=== PATIENT | female | born 2005 | race Caucasian/White ===

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

== ENCOUNTER 2025-01-06 11:08 | Emergency (ER) | payer OTHER, SELFPAY ==
--- NOTE | 2025-01-06 11:12 | ED.SKABFB ---
HPI - Skin/Abscess/Foreign Bdy General Chief complaint: Skin/Abscess/Foreign Body Stated complaint: Rash Left Foot Time Seen by Provider: 01/06/25 11:20 Source: patient Mode of arrival: ambulatory Limitations: no limitations History of Present Illness HPI narrative: Jacquelyn is a 19-year-old female patient presenting to the clinic today with complaints of a red, raised, itchy, burning rash to her left foot. She reports she participated in [employer] drill-walking [address] over the weekend developed a rash on her left foot. She reports that her feet were very sweaty after the hike. Related Data Home Medications ?Medication ?Instructions ?Recorded ?Confirmed ?Last Taken ?Type medroxyprogesterone 150 mg/mL 150 mg IM [id number] 09/09/24 09/09/24 Unknown History intramuscular syringe spironolactone 100 mg tablet mg 01/06/25 Unknown History Allergies Allergy/AdvReac Type Severity Reaction Status Date / Time No Known Allergies Allergy Verified 01/06/25 11:14 Review of Systems Review of Systems: Pertinent positives per HPI. Patient denies any fever, chills, headache, visual changes, dizziness, cough, shortness of breath, chest pain, palpitations, nausea, vomiting, diarrhea, constipation, abdominal pain, or any urinary issues. [facility] Past Medical History Medical History Anxiety and depression Surgical History Surgical History Hx of tonsillectomy Social History Social History Smoking status: Never smoker Alcohol intake: never Substance use type: does not use Occupation/Education: student Gender identity (if verbalized by the patient): Female Comments At the time of my signature, I reviewed and agree with the nursing past medical, surgical, social, and family history. There is no relevant family history pertinent to the patient complaint. Exam Narrative: General: Well-developed, well nourished, in no apparent distress Head: Normocephalic, atraumatic. Cardio: Regular rate and rhythm, s1 and s2 normal, no murmur appreciated. Resp: Clear to auscultation bilaterally, no rhonchi, rales, wheezing or rubs. Integumentary: [place], warm, and dry, red, raised, itchy, burning rash to the left toes Course Course Emergency Course: Portions of this record may have been created with voice recognition software. Level of Care: Express Care Visit Vital Signs Vital signs: Vital Signs Temperature 36.7 C 01/06/25 11:18 Pulse Rate 90 01/06/25 11:18 Respiratory Rate 18 01/06/25 11:18 Blood Pressure 117/69 01/06/25 11:18 Pulse Oximetry 99 01/06/25 11:18 Oxygen Delivery Room Air 01/06/25 11:18 Temperature 36.7 C 01/06/25 11:18 Pulse Rate 90 01/06/25 11:18 Respiratory Rate 18 01/06/25 11:18 Blood Pressure 117/69 01/06/25 11:18 Pulse Oximetry 99 01/06/25 11:18 Oxygen Delivery Room Air 01/06/25 11:18 Vital signs reviewed MDM - Skin/Abscess/Foreign Bdy MDM Narrative Medical decision making narrative: At the time of visit patient is resting comfortably on the exam table. Patient appears to be nontoxic. Plan: I suspect patient has tinea pedis. Prescription for to be terbinafine cream was sent to the pharmacy. Supportive measures were discussed with the patient and they voiced understanding discharge instructions and agrees to treatment plan. Return precautions reviewed Differential Diagnosis Differential diagnosis: Likely abscess of skin or subcutaneous tissue, viral exanthem, dermatophytosis, urticaria, herpes zoster, allergic reaction to drug, cellulitis, eczema, insect bites, impetigo, contact dermatitis and other (Tinea pedis) Discharge Plan Discharge Clinical Impression: Tinea pedis Qualifiers: Laterality: left Qualified Code(s): B35.3 - Tinea pedis Patient Disposition: Home, Self-Care Condition: Stable Instructions: Antibiotic Form, Skin Yeast Infection (ED) Additional Instructions: Apply terbinafine cream as prescribed Follow-up with your primary care doctor as needed Patient Language: Portuguese Prescriptions: New terbinafine HCl 1 % cream 1 applic topical BID 14 Days Qty: 30 0RF No Action medroxyprogesterone 150 mg/mL syringe 150 mg IM [id number] spironolactone 100 mg tablet Follow-up/Referrals: PHYSICIAN,HEARING OFFICER [Primary Care Provider] - Time of Disposition: 11:26 Quality NIHSS Nursing Documentation ED NIHSS nursing documentation: reviewed/agree
[2025-01-06 11:18] VITALS: BP 117/69; PULSE 90; RESP 18; TEMP 36.7; O2SAT 99
== END 2025-01-06 11:37 | disposition home or self-care (01) ==
PROVIDERS: Emergency Provider Nurse Practitioner Family
DX: B35.3 Tinea pedis (principal)
CPT/HCPCS: 99213; G0463

== ENCOUNTER 2025-02-12 11:00 | Emergency (ER) | payer OTHER, SELFPAY ==
[2025-02-12 11:10] VITALS: BP 104/74; PULSE 90; RESP 16; TEMP 36.6; O2SAT 99
[2025-02-12 11:18] LABS: EDUAAPPEAR Cloudy; EDUABILI Negative (Negative); EDUABLOOD 2+ (Negative); EDUACOLOR1 Light/Pale; EDUAGLUCOSE Negative (Negative); EDUAKETONE Negative (Negative); EDUALEUKO 1+ (Negative); EDUANITRATE Positive (Negative); EDUAPROTEIN 1+ (Negative); EDUAUROBILI 0.2
--- NOTE | 2025-02-12 11:44 | ED_ITS ---
HPI - Female Genitourinary General Chief complaint: Urogenital-Female Stated complaint: Uti Symptoms Time Seen by Provider: 02/12/25 11:35 Source: patient and RN notes reviewed Mode of arrival: ambulatory Limitations: no limitations History of Present Illness HPI Narrative: 19-year-old female presents to the [facility] complaining of urinary symptoms since yesterday. She reports burning with urination increased frequency.. Denies any abdominal pain, back pain, fevers, body aches, chills, vaginal discharge, and hematuria. Patient denies any chance of , are any concerns for STIs. Related Data Home Medications ?Medication ?Instructions ?Recorded ?Confirmed ?Last Taken ?Type medroxyprogesterone 150 mg/mL 150 mg IM [id number] 09/09/24 09/09/24 Unknown History intramuscular syringe spironolactone 100 mg tablet mg 01/06/25 Unknown History Allergies Allergy/AdvReac Type Severity Reaction Status Date / Time No Known Allergies Allergy Verified 02/12/25 11:16 Review of Systems Review of Systems: CONSTITUTIONAL: Denies fever, chills, or sweats. EYES: Denies visual changes, redness, or discharge. ENT: Denies rhinorrhea, congestion, sore throat, or otalgia. CARDIOVASCULAR: Denies chest pain, palpitations, or edema. RESPIRATORY: Denies cough or dyspnea. GASTROINTESTINAL: Denies abdominal pain, nausea, vomiting, or diarrhea. GENITOURINARY: Positive for dysuria hand negative for hematuria. SKIN: Denies rash or itching. MUSCULOSKELETAL: Denies back pain, joint pain, or myalgia. NEUROLOGIC: Denies headache, numbness, or weakness. PSYCHIATRIC: Denies anxiety or depression. All other systems reviewed are negative, except as documented in HPI. [facility] Past Medical History Medical History Anxiety and depression Surgical History Surgical History Hx of tonsillectomy Social History Social History Smoking status: Never smoker Alcohol intake: never Substance use type: does not use Occupation/Education: student Gender identity (if verbalized by the patient): Female Comments At the time of my signature, I reviewed and agree with the nursing past medical, surgical, social, and family history. There is no relevant family history pertinent to the patient complaint. Exam Narrative: GENERAL: This is a well-nourished, well-developed adult, in no apparent distress. They are non ill-appearing, nontoxic appearing. HEAD: normocephalic, atraumatic. EYES: Sclera clear/white. Vision is grossly intact. EARS: External ears normal, Hearing grossly intact. NOSE: External nose normal THROAT: Mucous membranes moist, NECK: Neck supple, non-tender without lymphadenopathy, masses or thyromegaly. CARDIOVASCULAR: Regular rate and rhythm without murmurs, gallops, or rubs. RESPIRATORY: Clear to auscultation. Breath sounds equal bilaterally. No wheezes, rales, or rhonchi. GASTROINTESTINAL: Abdomen soft, non-tender, nondistended. Bowel sounds are active. No hepato-splenomegaly, or palpable masses. No guarding. SKIN: warm, Dry, intact with no suspicious lesions or rash, good texture and turgor. NEURO: awake, alert, and oriented to person, place and time. There were no obvious focal neurologic abnormalities. EXTREMITIES: No joint tenderness, effusion, or edema noted. BACK: Nontender without deformity. No CVA tenderness. Course Course Level of Care: Express Care Visit Vital Signs Vital signs: Vital Signs Temperature 97.8 F 02/12/25 11:10 Pulse Rate 90 02/12/25 11:10 Respiratory Rate 16 02/12/25 11:10 Blood Pressure 104/74 02/12/25 11:10 Pulse Oximetry 99 02/12/25 11:10 Temperature 97.8 F 02/12/25 11:10 Pulse Rate 90 02/12/25 11:10 Respiratory Rate 16 02/12/25 11:10 Blood Pressure 104/74 02/12/25 11:10 Pulse Oximetry 99 02/12/25 11:10 Reviewed MDM - Female Genitourinary MDM Narrative Medical decision making narrative: Urine dipstick is consistent with a urinary tract infection. Urine culture is pending. Patient has no abdominal pain or CVA tenderness. Will treat patient empirically with cephalexin. Discussed physical exam findings. Advised supportive measures and signs/symptoms to go to the ER. Pt is appropriate for outpt treatment and f/u. Differential Diagnosis Differential diagnosis: Likely urinary tract infection, cystitis and other (Pyelonephritis) Lab Data Attestation: I reviewed the patient's lab results. Labs: Lab Results 02/12/25 Range/Units 11:16 POC Urine Color Light/pale POC Urine Clarity Cloudy POC Urine pH 6.0 POC Ur Specif [place] 1.020 POC Urine Protein 1+ (Negative) POC Ur Glucose (UA) Negative (Negative) POC Urine Ketones Negative (Negative) POC Urine Blood 2+ (Negative) POC Urine Nitrite Positive (Negative) POC Urine Bilirubin Negative (Negative) POC Urine Urobilinogen 0.2 POC U Leukocyte Esteras 1+ (Negative) Critical Care Time Critical Care Time Critical Care Time: No Discharge Plan Discharge Clinical Impression: Urinary tract infection Qualifiers: Urinary tract infection type: site unspecified Hematuria presence: with hematuria Qualified Code(s): N39.0 - Urinary tract infection, site not specified Patient Disposition: Home Condition: Stable Instructions: Antibiotic Form, Urinary Tract Infection in Women (ED) Additional Instructions: Take the antibiotic as prescribed The urine will be sent of for a culture to identify what type of bacteria is causing your infection. If the culture shows that the antibiotic will not get rid of your infection, you will be notified and a new antibiotic will be called in for you. Increase water intake you will need to follow up with your PCP, call to schedule an appointment. Go to the ER for any worsening symptoms or concerns Patient Language: [place] Island[place] Prescriptions: New cephalexin 500 mg capsule 500 mg PO BID 7 Days Qty: 14 0RF No Action medroxyprogesterone 150 mg/mL syringe 150 mg IM [id number] spironolactone 100 mg tablet terbinafine HCl 1 % cream 1 applic topical BID 14 Days Qty: 30 0RF Follow-up/Referrals: PHYSICIAN,CONTROL DIRECTOR [Primary Care Provider] - Time of Disposition: 11:46
== END 2025-02-12 11:47 | disposition home or self-care (01) ==
DX: N39.0 Urinary tract infection, site not specified (principal); B96.20 Unspecified Escherichia coli [E. coli] as the cause of diseases classified elsewhere
CPT/HCPCS: 81003; 87086; 87186; 99213; G0463

== ENCOUNTER 2025-06-15 10:53 | Emergency (ER) | payer OTHER, SELFPAY ==
--- NOTE | ~2025-06-15 | XR_ITS ---
EXAMINATION: XR thoracic spine 3V, XR ribs RT 2V w CXR 2V DATE: 06/15/2025 11:41 INDICATION: Rib and thoracic spine pain post injury TECHNIQUE: 1. One AP, lateral and lateral swimmer's views of the thoracic spine were obtained. 2. PA and lateral views of the chest and 3 views of the right ribs were obtained. COMPARISON: None. FINDINGS: Chest and right ribs: Lungs are clear with no focal airspace opacities, pulmonary edema, pleural effusion or pneumothorax. Heart size is normal. There is subtle change in the curvature of the anterior left ninth ribs raising suspicion for fracture but without linear lucency or angulated cortex suggesting this is likely old. Thoracic spine: 11 degrees mid thoracic levoscoliosis with compensatory 5 degrees upper and lower thoracic dextrocurv atures. Sagittal alignment is normal. Vertebral body and disc heights are normal. IMPRESSION: 1. Irregular contour to the anterior left ninth rib without lucent fracture line or sharply angulated cortex to suggest acute fracture and this could be either developmental or sequela of old healed fra cture. Correlate for point tenderness at this location. 2. No acute cardiopulmonary disease. 3. 11 degrees midthoracic levoscoliosis with compensatory dextrocurvature and more cephalad and cauda l thoracic spine. Reviewed, dictated and finalized at location A. IMPRESSION: 1. Irregular contour to the anterior left ninth rib without lucent fracture leonard e or sharply angulated cortex to suggest acute fracture and this could be eithe r developmental or sequela of old healed fracture. Correlate for point tenderne ss at this location. 2. No acute cardiopulmonary disease. 3. 11 degrees midthoracic levoscoliosis with compensatory dextrocurvature and m ore cephalad and caudal thoracic spine.
--- OUTSIDE RECORDS SUMMARY | 2025-06-15 10:55 | XMS_ITS | Clinical Summary ---
Author Organization [facility] [address] Address [address] [place] [address] Care Team Providers Care Ethical Hacker Name Role Phone Unknown, Notinfile Primary Care Provider Unavail able Allergies No known active allergies Medications medroxyPROGESTE Hany 150 mg/mL injection Inject 1 mL (150 mg total) into the muscle as instructed every 3 (three) months 1 mL 1 Active Active Problems Problem Noted Date Diagnosed Date Acquired short Achilles tendon 05/22/2015 Pain of foot 05/18/2015 Closed fracture of fibula 11/29/2011 Encounters Date Type Department Care Team Description 05/05/2025 [facility] [address] [place] [address] Jaqueline Cruz, 05/02/2025 Telephone [facility] [address] [place] [address] Jaqueline Cruz, Medication from Last 3 Months Immunizations Immunization Administration Dates Next Due DTaP / Hep B / IPV 2005,2005, 005 HiB 2005,2005,2005 Meningococcal MCV4P (Menactra) 05/18/2022 Pneumococcal Conjugate 7-Valent 2005,07/07,2005 Varicella 03/01/2006 Social History Tobacco Use Types Packs/Day Years Used Date Smoking Tobacco: Never Smokeless Tobacco: Never Tobacco Cessation:Counseling Given: Not Answered Comments No Sex and Gender Information Value Date Recorded Sex Assigned at Not on file Legal Sex Female 9:56 AM BASKET WEAVER Gender Identity Not on file Sexual Orientation Not on file Occupation Industry Job Start Date Job End Date Not on file Not on file Not on file Not on file Obstetrics History Para Term AB IAB SAB Ectopic Multiple Livin g Live Births 0 0 0 0 0 0 0 0 0 0 0 Last Filed Vital Signs Vital Sign Reading Time Taken Comments Blood Pressure 116/68 09/02/2024 1:55 PM CDT Pulse - - Temperature - - Respiratory Rate - - Oxygen Saturation - - Inhaled Oxygen Concentration - - Weight 62.2 kg (137 lb 3.2 oz) 09/02/2024 1:55 P M CDT Height 167.6 cm (5' 6) 11/03/2023 11:20 AM BASKET WEAVER Body Mass Index 22.14 11/03/2023 11:20 AM BASKET WEAVER Plan of Treatment Health Maintenance Due Date Last Done Comments Depression Screening 2005 Varicella Vaccines (2 of 2 - 2-dose childhood series) 2009 03/01/2006 DTaP/Tdap/Td Vaccine (4 - Tdap) 02/16/2016 2005, 2005, 2005 HPV Vaccines (1 - 3-dose series) 02/16/2020 Meningococcal B Vaccine (1 of 2 - Standard) 2021 Regular Well Visit/Exam 18-64 2023 Influenza Vaccine (#1) 2025 Chlamydia and Gonorrhea (GC/CT) Screening 11/25/2025 11/25/2024, 09/02/2024, 07/18/2024, Additional history exists Hepatitis B Screening Completed 2005 , 2005, 2005 Pneumococcal vaccine <65 Aged Out 005, 2005, 2005 No longer eligible based on patient's age to complete this topic Meningococcal Vaccine Completed 05/18/2022 Hepatitis C Screening Completed 11/25/2024, 023 Procedures Procedure Name Priority Date/Time Associated Diagnosis Comments HEPATITIS C ANTIBODY Routine 11/25/2024 3:43 PM BASKET WEAVER Screening for STD (sexually transmitted disease) N. GONORRHOEAE/C. TRACHOMATIS AMPLIFICATION Routine 11/25/2024 3:43 PM BASKET WEAVER Screening for STD (sexually transmitted disease) from Last 3 Months or Most Recently Relevant to Health Maintenance Results * N. gonorrhoeae/C. trachomatis Amplification Urine (11/25/2024 3:43 PM BASKET WEAVER) Pathologist [facility] C. trachomatis Not Detected [facility] Comment:Testing performed by : [facility], [address] [place] [address]., [id number] N. gonorrhoeae Not Detected [facility] Comment: Interpretive Data This assay detects Chlamydia trachomatis and Neisseria gonorrhoeae by nucleic acid amplification testing (NAAT). This assay has been cleared by the [place] Food and Drug administration. The performance characteristics of this test have been verified by the [facility] Molecular Infectious Disease laboratory. The performance characteristics of this test have not been evaluated in individuals less than 14 years of age. Current Interpretive Data was last revised on 2023. Testing performed by: [facility], [address] [place] [address]., [id number] Urine (None) 11/25/2024 3:43 PM BASKET WEAVER 11/26/2024 10:14 AM BASKET WEAVER Jaqueline Cruz DO LAB MICROBIOLOGY - GENE RAL ORDERABLES Final Result [facility] [id number] [place] [address] Department [place] [address] [facility] * Hepatitis C antibody Blood (11/25/2024 3:43 PM BASKET WEAVER) Pathologist [facility] Hep C Ab Nonreactive Nonreactive Comment: Interpretive Data Nonreactive: Antibodies to HCV not detected. Does NOT exclude the possibility of recent exposure to HCV. Equivocal: Equivocal for HCV antibodies. Supplemental molecular testing will be automatically performed to determine infection status in accordance with current CDC screening recommendations. Reactive: Positive for HCV antibodies. This may represent current or past HCV infection. Supplemental molecular testing will be automatically performed to determine current infection status in accordance with current CDC screening recommendations. Interpretive data was last revised on 2020. Testing performed by: [facility], [id number] [place] [address], [place] [id number] Blood 11/25/2024 3:43 PM BASKET WEAVER 11/25/2024 6:23 PM BASKET WEAVER us Jaqueline Cruz DO LAB MICROBIOLOGY - GENE R[place] [id number] Mariela Patten Department [place] [address] from Last 3 Months or Most Recently Relevant to Health Maintenance Insurance [facility] CHOICE [facility]US [facility] HMO/PPO Address: [address] [address] [place] [address] Care Teams Ethical Hacker Relationship Specialty Start Date End Date Unknown, Notinfile PCP - General 10/24/23
--- OUTSIDE RECORDS SUMMARY | 2025-06-15 10:55 | XMS_ITS | Encounter Summary ---
Author Organization [facility] Address [address] [place] [address] Care Team Providers Care Director Life Insurance Name Role Phone Yosvany Aguila MD Primary Care Provider [phone] Encounter Details Date Type Department Care Team (Late st Contact Info) Description 04/13/2019 Abstract [facility] CONVERSION [address] [place] [address] , Generic Conversion, Social History Tobacco Use Types Packs/Day Years Used Date Smoking Tobacco: Never Assessed Comments Unknown Sex and Gender Information Value Date Recorded Sex Assigned at Female 10/05/2020 11:57 PM QUALITY ASSURANCE CLERK Legal Sex Female 5:45 PM QUALITY ASSURANCE CLERK Gender Identity Female 10/05/2020 11:57 PM QUALITY ASSURANCE CLERK Sexual Orientation Straight 10/05/2020 11 :57 PM QUALITY ASSURANCE CLERK documented as of this encounter Plan of Treatment Not on file documented as of this encounter Visit Diagnoses Not on filedocumented in this encounter Care Teams Director Life Insurance Relationship Specialty Start Date End Date Yosvany Aguila MD [address] [place] [id number] PCP - General FAMILY PRACTICE 10/05/20 documented as of this encounter
--- OUTSIDE RECORDS SUMMARY | 2025-06-15 10:55 | XMS_ITS | Encounter Summary ---
Author Organization [facility] Address [address] [place] [address] Care Team Providers Care Fiscal Accountant Name Role Phone Yosvany Aguila MD Primary Care Provider [phone] Reason for Visit * Reason Onset Date Comments Nurse Only 07/24/2023 Encounter Details Date Type Department Care Team (Late st Contact Info) Description 07/24/2023 Telephone [facility] - Centralized Scheduling [address] [place] [phone] Nathan Fitch MD [address] [facility] [place] [phone] Nurse Only Social History Tobacco Use Types Packs/Day Years Used Date Smoking Tobacco: Never Assessed Comments Unknown Sex and Gender Information Value Date Recorded Sex Assigned at Not on file Legal Sex Female 10:20 AM CDT Gender Identity Not on file Sexual Orientation Not on file documented as of this encounter Miscellaneous Notes * Telephone Encounter - Caryl Mehta - 07/24/2023 10:42 AM CDT Pt calling [employer] Student, was referred to [facility] [place], for Optometric Exam for [employer] Pt need to get in between 1 and 2 weeks. documented in this encounter Plan of Treatment Not on file documented as of this encounter Visit Diagnoses Not on filedocumented in this encounter Care Teams Fiscal Accountant Relationship Specialty Start Date End Date Yosvany Aguila MD [address] [place] [address] [place] [address] PCP - General Family Medicine 09/08/23 documented as of this encounter
--- OUTSIDE RECORDS SUMMARY | 2025-06-15 10:55 | XMS_ITS | Clinical Summary ---
Author Organization [facility] Address [address] [address] Care Team Providers Care Education And Outreach Coordinator Name Role Phone Yosvany Aguila MD Primary Care Provider [phone] Source Comments [facility],non-owned Affiliates and Associated Physician Practices is amultiple site organization consisting of ambulatory clinics and hospital sitesin [place], [place], [place] and [place]. This disclosure is being madepursuant to the Care Everywhere program and may not contain all information available regarding this patient. Last updated 18.[facility] Medications * Be aware that medications may not be up to date on this document. Alwaysverify current medications with the patient. No known medications Active Problems No known active problems Social History Tobacco Use Types Packs/Day Years Used Date Smoking Tobacco: Never Assessed Comments Unknown Sex and Gender Information Value Date Recorded Sex Assigned at Not on file Legal Sex Female 10:20 AM CDT Gender Identity Not on file Sexual Orientation Not on file Plan of Treatment Health Maintenance Due Date Last Done Comments HIV SCREENING 02/16/2020 HPV VACCINE (1 - 3-dose series) 02/16/2020 CHLAMYDIA/GONORRHEA SCREENING 2021 MENINGOCOCCAL (Group B) VACC INE SHARED DECISION-MAKING (1 of 2 - Standard) 2021 HEPATITIS C SCREENING 02/11/2023 DTAP/TDAP/TD VACCINES (1 - Tdap) 02/16/2024 HEPATITIS B VACCINE (1 of 3 - 19+ 3-dose series) 02/16/2024 COVID-19 VACCINE (1 - 2023-2 5 season) 2024 DEPRESSION SCREENING 11/06/2024 INFLUENZA VACCINE (#1) 2025 ZOSTER VACCINE (1 of 2) 2055 HIB VACCINE Aged Out No longer eligi ble based on patient's age to complete this topic MENINGOCOCCAL GROUPS A/C/Y/W VACCINE Aged Out No longer eligible b ased on patient's age to complete this topic PNEUMOCOCCAL VACCINE Aged Out No long er eligible based on patient's age to complete this topic Insurance , [place] [address] [employer] Care Teams Education And Outreach Coordinator Relationship Specialty Start Date End Date Yosvany Aguila MD [facility] [place] [phone] PCP - General Family Medicine 09/08/23
--- OUTSIDE RECORDS SUMMARY | 2025-06-15 10:55 | XMS_ITS | Continuity of Care Document ---
Author Organization [facility] Address [address] [place] [address] Phone Care Team Providers Care Chute Feeder Name Role Phone Stafford OD, Cecilio Unavailable Unavailable Procedures Procedure Date Eye Exam, New Patient Refraction Advance Directives Directive Yes / No Effective Date File Name No Information Encounters Encounter Description Practice Location Reason(s) For Visit Diagnoses Date Provider Providers Copied on Encounter [facility], [address], [place], [place], [id number], [place] tel:[phone] [facility] No Information March-0 7-201 0 Stafford OD Cecilio. [address] , [address], [place], [address], [place]. tel:[phone] Family History Family Member Type Diagnosis Age At Onset No Information Payers Payer name Insurance type Covered green party ID Authoradriaa milton(s) [facility] Commercial CI [id number] Social History Type Description Quantity Date Captured Comments Sex Female Smoking Status No Information Chief Complaint And Reason For Visit No Information Reason For Referral Reason For Referral No Information History Of Present Illness Encounter Date Complaint History Of Prese nt Illness No Information Functional Status Date Functional Assessmen t No Information Instructions Date Instruction Additional Infor mation No Information Assessments Type Assessment Date No Information Patient Care Teams Name Effective Dates (start - stop) Status Members No Information
--- OUTSIDE RECORDS SUMMARY | 2025-06-15 10:55 | XMS_ITS | Clinical Summary ---
Author Organization [facility] Address [address] [place] [address] Care Team Providers Care Certified Flex Endoscope Reprocessor Name Role Phone Yosvany Aguila MD Primary Care Provider [phone] Allergies No known active allergies Medications No known medications Active Problems No known active problems Family History Relation Status Comments Father Alive Mother Alive Social History Tobacco Use Types Packs/Day Years Used Date Smoking Tobacco: Never Smokeless Tobacco: Never Tobacco Cessation:Counseling Given: Not Answered Alcohol Use Standard Drinks/Week Comments Yes 0 (1 standard drink = 0.6 oz pur e alcohol) ETOH Comments No Sex and Gender Information Value Date Recorded Sex Assigned at Female 10/05/2020 11:57 PM OUTDOOR ADVENTURE INSTRUCTOR Legal Sex Female 5:45 PM OUTDOOR ADVENTURE INSTRUCTOR Gender Identity Female 10/05/2020 11:57 PM OUTDOOR ADVENTURE INSTRUCTOR Sexual Orientation Straight 10/05/2020 11 :57 PM OUTDOOR ADVENTURE INSTRUCTOR Last Filed Vital Signs Vital Sign Reading Time Taken Comments Blood Pressure 135/79 04/27/2023 9:15 AM CDT Pulse 69 04/27/2023 6:01 AM CDT Temperature 36.6 C (97.9 F) 04/27/2023 9:15 AM CDT Respiratory Rate 18 04/27/2023 10:15 AM CDT Oxygen Saturation 98% 04/27/2023 10:45 AM CDT Inhaled Oxygen Concentration - - Weight 69.5 kg (153 lb 3.2 oz) 04/27/2023 6:01 A M CDT Height 170.2 cm (5' 7) 04/27/2023 6:01 AM CDT Body Mass Index 23.99 04/27/2023 6:01 AM CDT Plan of Treatment Health Maintenance Due Date Last Done Comments Hepatitis B Vaccines (4 of 4 - 4-dose series) 2005 2005, 2005, 2005 Annual Physical 02/16/2008 HPV Vaccines (1 - 3-dose series) 02/16/2020 Chlamydia Screening Females ages 16-24 2021 Meningococcal B Vaccine (1 o f 2 - Standard) 2021 Hepatitis C 2023 DTaP, Tdap and Td Vaccines ( 4 - Tdap) 02/16/2024 2005, 2005, 2005 COVID-19 Vaccine (1 - 2023-2 5 season) 2024 Meningococcal Vaccine Aged Out No kadie melody eligible based on patient's age to complete this topic Pneumococcal Vaccine: Pediatrics (0 to 5 Years) and At-Risk Patients (6 to 49 Years) Aged Out No longer eligible b ased on patient's age to complete this topic RSV Immunizations Under 20 Months Aged Out No longer eligible b ased on patient's age to complete this topic Insurance [facility] [employer] [place] Advance Directives * Full Code (Latest Code Status on File) Date Activated Date Inactivated Comments 04/27/2023 9:20 AM 04/27/2023 1:08 PM Care Teams Certified Flex Endoscope Reprocessor Relationship Specialty Start Date End Date Yosvany Aguila MD [address] [place] [phone] PCP - General FAMILY PRACTICE 10/05/20
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
[2025-06-15 11:01] VITALS: BP 119/76; PULSE 80; RESP 14; TEMP 36.4; O2SAT 99
[2025-06-15 11:04] LABS: BEDSIDEPREGUCG Negative (Negative)
--- OUTSIDE RECORDS SUMMARY | 2025-06-15 11:18 | XMS_ITS | Clinical Summary ---
Author Organization [facility] Address [address] [place] [address] Care Team Providers Care Fiberglass Technician Name Role Phone Yosvany Aguila MD Primary Care Provider Allergies No known active allergies Medications No [...] Sex Assigned at Female 10/05/2020 11:57 PM GREENHOUSE STAFF Legal Sex Female 5:45 PM GREENHOUSE STAFF Gender Identity Female 10/05/2020 11:57 PM GREENHOUSE STAFF Sexual Orientation Straight 10/05/2020 11 :57 PM GREENHOUSE STAFF Last Filed Vital Signs Vital Sign Reading [...] patient's age to complete this topic Insurance [facility] [place] Advance Directives * Full Code (Latest Code Status on File) Date Activated Date Inactivated Comments 04/27/2023 9:20 AM 04/27/2023 1:08 PM Care Teams Fiberglass Technician Relationship Specialty Start Date End Date Yosvany Aguila MD [address] [place] [phone] PCP - General FAMILY PRACTICE 10/05/20
--- OUTSIDE RECORDS SUMMARY | 2025-06-15 11:18 | XMS_ITS | Continuity of Care Document ---
Author Organization [facility] Address [address] [place] [address] Phone Care Team Providers Care Key Punch Teacher Name Role Phone Stafford OD, Cecilio Unavailable Unavailable Procedures Procedure Date Eye Exam, New Patient Refraction Advance Directives Directive Yes / No Effective Date File Name No Information Encounters Encounter Description Practice Location Reason(s) For Visit Diagnoses Date Provider Providers Copied on Encounter [facility], [address], [place], [place], [id number], [place] tel:[phone] [facility] No Information March-0 7-201 0 Stafford OD Cecilio. [address] , [address], [place], [address], [place]. tel:[phone] Family History Family Member Type Diagnosis Age At Onset No Information Payers Payer name Insurance type Covered libertarian ID Authoradriaa milton(s) [facility] Commercial CI [id number] Social History Type Description Quantity Date Captured [...]
--- OUTSIDE RECORDS SUMMARY | 2025-06-15 11:19 | XMS_ITS | Encounter Summary ---
Author Organization [facility] Address [address] [place] [address] Care Team Providers Care Salon Professional Name Role Phone Yosvany Aguila MD Primary Care Provider [phone] Reason for Visit * Reason Onset Date Comments Nurse Only 07/24/2023 Encounter Details Date Type Department Care Team (Late st Contact Info) Description 07/24/2023 Telephone [facility] - Centralized Scheduling [address] [place] [phone] Nathan Fitch MD [address] [facility] DEPT [place] [address] Nurse Only Social History Tobacco Use Types [...] Student, was referred to [facility] [employer], for Optometric Exam for [employer] Scholarship Pt need to get in between 1 and 2 weeks. documented in this encounter Plan of Treatment Not on file documented as of this encounter Visit Diagnoses Not on filedocumented in this encounter Care Teams Salon Professional Relationship Specialty Start Date End Date Yosvany Aguila MD [address] [place] [address] [place] [address] PCP - General Family Medicine 09/08/23 documented as of this encounter
--- OUTSIDE RECORDS SUMMARY | 2025-06-15 11:19 | XMS_ITS | Clinical Summary ---
Author Organization [facility] [address] Address [address] [place] [address] Care Team Providers Care Dust Box Tender Name Role Phone Unknown, Notinfile Primary Care [...] Type Department Care Team Description 05/05/2025 [facility] [address] [place] [address] Jaqueline Cruz, 05/02/2025 Telephone [facility] [address] [place] [address] Jaqueline Cruz, Medication from Last 3 Months [...] on file Legal Sex Female 9:56 AM JACQUARD LOOM WEAVER Gender Identity Not on file Sexual [...] 167.6 cm (5' 6) 11/03/2023 11:20 AM JACQUARD LOOM WEAVER Body Mass Index 22.14 11/03/2023 11:20 AM JACQUARD LOOM WEAVER Plan of Treatment Health Maintenance Due [...] HEPATITIS C ANTIBODY Routine 11/25/2024 3:43 PM JACQUARD LOOM WEAVER Screening for STD (sexually transmitted disease) N. GONORRHOEAE/C. TRACHOMATIS AMPLIFICATION Routine 11/25/2024 3:43 PM JACQUARD LOOM WEAVER Screening for STD (sexually transmitted disease) from Last 3 Months or Most Recently Relevant to Health Maintenance Results * N. gonorrhoeae/C. trachomatis Amplification Urine (11/25/2024 3:43 PM JACQUARD LOOM WEAVER) Pathologist [facility] C. trachomatis Not Detected [facility] Comment:Testing performed by : [facility], [address] [place] [address]., [address] N. gonorrhoeae Not Detected [facility] Comment: Interpretive Data This assay detects Chlamydia trachomatis and Neisseria gonorrhoeae by nucleic acid amplification testing (NAAT). This assay has been cleared by the [place] Food and Drug administration. The performance characteristics of this test have been verified by the [facility] Molecular Infectious Disease laboratory. The performance characteristics of this test have not been evaluated in individuals less than 14 years of age. Current Interpretive Data was last revised on 2023. Testing performed by: [facility], [address] [place] [address]., [address] Urine (None) 11/25/2024 3:43 PM JACQUARD LOOM WEAVER 11/26/2024 10:14 AM JACQUARD LOOM WEAVER Jaqueline Cruz DO LAB MICROBIOLOGY - GENE RAL ORDERABLES Final Result [facility] [id number] [place] [address] Department [place] [address] [facility] * Hepatitis C antibody Blood (11/25/2024 3:43 PM JACQUARD LOOM WEAVER) Pathologist [facility] Hep C Ab Nonreactive Nonreactive Comment: Interpretive [...] last revised on 2020. Testing performed by: [facility], [address] [place] [address], [place]., [address] Blood 11/25/2024 3:43 PM JACQUARD LOOM WEAVER 11/25/2024 6:23 PM JACQUARD LOOM WEAVER us Jaqueline Cruz DO LAB MICROBIOLOGY - GENE RAL [place] [address] Mariela Patten Department [place] [address] from Last 3 Months or Most Recently Relevant to Health Maintenance Insurance [facility] CHOICE PLUS Care Teams Dust Box Tender Relationship Specialty Start Date End Date Unknown, Notinfile PCP - General 10/24/23
--- OUTSIDE RECORDS SUMMARY | 2025-06-15 11:19 | XMS_ITS | Encounter Summary ---
Author Organization [facility] Address [address] [place] [address] Care Team Providers Care Highway Worker Name Role Phone Yosvany Aguila MD Primary Care Provider Encounter Details Date Type Department Care Team (Late st Contact Info) Description 04/13/2019 Abstract [facility] CONVERSION [address] [place] [address] , Generic Conversion, Social History Tobacco Use Types Packs/Day Years Used Date Smoking Tobacco: Never Assessed Comments Unknown Sex and Gender Information Value Date Recorded Sex Assigned at Female 10/05/2020 11:57 PM MANAGER SERVICING Legal Sex Female 5:45 PM MANAGER SERVICING Gender Identity Female 10/05/2020 11:57 PM MANAGER SERVICING Sexual Orientation Straight 10/05/2020 11 :57 PM MANAGER SERVICING documented as of this encounter Plan of Treatment Not on file documented as of this encounter Visit Diagnoses Not on filedocumented in this encounter Care Teams Highway Worker Relationship Specialty Start Date End Date Yosvany Aguila MD [address] [place] [phone] PCP - General FAMILY PRACTICE 10/05/20 documented as of this encounter
--- OUTSIDE RECORDS SUMMARY | 2025-06-15 11:19 | XMS_ITS | Clinical Summary ---
Author Organization [facility] Address [address] [place] [address] Care Team Providers Care Industry Segment Specialist Name Role Phone Yosvany Aguila MD Primary Care Provider [phone] Source Comments [facility],non-owned Affiliates and Associated Physician Practices is amultiple site organization consisting of ambulatory clinics and hospital sitesin [place], [place], [place] and [place]. This disclosure is being madepursuant to the Care Everywhere program and may not contain all information available regarding this patient. Last updated 18.[facility] Medications * Be aware that medications may [...] age to complete this topic Insurance , [place] [address] COMMERCIAL GENERIC Care Teams Industry Segment Specialist Relationship Specialty Start Date End Date Yosvany Aguila MD [facility] [place] [phone] PCP - General Family Medicine 09/08/23
--- NOTE | 2025-06-15 12:13 | ED.GENADULT ---
HPI - General Adult General Chief complaint: Back Pain/Injury Stated complaint: Back Injury Time Seen by Provider: 06/15/25 10:56 History of Present Illness HPI narrative: Patient is a 20-year-old female who presents ER with pain in her back. 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 No numbness or tingling in the groin or legs. She has taken some anti-inflammatories with mild improvement. She continues have discomfort medial to her left scapula. No range of motion issues in upper extremities. No difficulty breathing or swelling. Related Data Home Medications ?Medication ?Instructions ?Recorded ?Confirmed ?Last Taken ?Type medroxyprogesterone 150 mg/mL 150 mg IM [id number] 09/09/24 09/09/24 Unknown History intramuscular syringe spironolactone 100 mg tablet mg 01/06/25 Unknown History Allergies Allergy/AdvReac Type Severity Reaction Status Date / Time No Known Allergies Allergy Verified 02/12/25 11:16 Review of Systems Review of Systems: All systems reviewed & are unremarkable except as noted in HPI and below Constitutional: Constitutional: Reports no additional constitutional complaints Musculoskeletal: Musculoskeletal: Reports no additional musculoskeletal complaints Neurologic: Reports system reviewed and no additional complaints, except as documented PMF Past Medical History Medical History Anxiety and depression Surgical History Surgical History Hx of tonsillectomy Social History Social History Smoking status: Never smoker Alcohol intake: never Substance use type: does not use Occupation/Education: student Gender identity (if verbalized by the patient): Female Exam Narrative: GENERAL: Well-appearing, well-nourished, and in no acute distress. HEAD: Normocephalic, atraumatic. ENT: Mucous membranes moist. CHEST: Clear to auscultation. No respiratory distress. HEART: Regular rate and rhythm. Normal peripheral pulses EXTREMITIES: Normal range of motion. No edema. Back: No midline tenderness the T/L-spine. There is paraspinal tenderness medial to the right scapula around the level of T6. NEURO: Alert and oriented x3. PSYCH: Normal mood and affect. Course Course Emergency Course: Patient informed of results. No tenderness over the chest. Appropriate for discharge home. Vital Signs Vital signs: Vital Signs Temperature 97.6 F 06/15/25 11:01 Pulse Rate 80 06/15/25 11:01 Respiratory Rate 14 06/15/25 11:01 Blood Pressure 119/76 06/15/25 11:01 Pulse Oximetry 99 06/15/25 11:01 Oxygen Delivery Room Air 06/15/25 11:01 Temperature 97.6 F 06/15/25 11:01 Pulse Rate 80 06/15/25 11:01 Respiratory Rate 14 06/15/25 11:01 Blood Pressure 119/76 06/15/25 11:01 Pulse Oximetry 99 06/15/25 11:01 Oxygen Delivery Room Air 06/15/25 11:01 Medical Decision Making Vital Signs Vital Signs: Vital Signs Temperature 97.6 F 06/15/25 11:01 Pulse Rate 80 06/15/25 11:01 Respiratory Rate 14 06/15/25 11:01 Blood Pressure 119/76 06/15/25 11:01 Pulse Oximetry 99 06/15/25 11:01 Oxygen Delivery Room Air 06/15/25 11:01 Temperature 97.6 F 06/15/25 11:01 Pulse Rate 80 06/15/25 11:01 Respiratory Rate 14 06/15/25 11:01 Blood Pressure 119/76 06/15/25 11:01 Pulse Oximetry 99 06/15/25 11:01 Oxygen Delivery Room Air 06/15/25 11:01 Lab Data Labs: Lab Results 06/15/25 Range/Units 11:01 POC Urine HCG, Qual Negative (Negative) Discharge Plan Discharge Clinical Impression: Back strain Patient Disposition: Home Condition: Stable Instructions: Back Pain (ED) Additional Instructions: Please return to the emergency department if you develop severe pain that is not controlled by pain medications or if you are unable to walk because of pain or weakness. Return to the emergency department immediately if you develop fevers, loss of bowel or bladder control (dribbling of urine or having accidents you wouldn't normally have), inability to urinate, numbness of your genital or anal area, or weakness/numbness of your legs or arms as these could all be signs of a serious medical emergency. Patient Language: [place] Prescriptions: New naproxen 375 mg tablet 375 mg PO BID Qty: 14 0RF No Action medroxyprogesterone 150 mg/mL syringe 150 mg IM [id number] spironolactone 100 mg tablet terbinafine HCl 1 % cream 1 applic topical BID 14 Days Qty: 30 0RF cephalexin 500 mg capsule 500 mg PO BID 7 Days Qty: 14 0RF Follow-up/Referrals: PHYSICIAN NOT ON STAFF,NONSTAFF [Primary Care Provider] - 1 Week
[2025-06-15 12:33] VITALS: BP 130/74; PULSE 74; RESP 16; O2SAT 99
== END 2025-06-15 12:34 | disposition home or self-care (01) ==
PROVIDERS: Emergency Provider Emergency Medicine
DX: S39.012A Strain of muscle, fascia and tendon of lower back, initial encounter (principal); F41.8 Other specified anxiety disorders
CPT/HCPCS: 71046; 71100; 72072; 81025; 99284